=== PATIENT | female | born 1960 | race Caucasian/White ===

== ENCOUNTER 2018-05-23 10:50 | Emergency (ER) | payer SELFPAY ==
[2018-05-23] MEDS ORDERED: IBUPROFEN 400 MG TAB ONE (11:35)
[2018-05-23] MEDS ORDERED: IBUPROFEN 200 MG TAB PO ONE (11:35)
--- NOTE | 2018-05-23 12:29 | RAD REPORT ---
EXAM DESCRIPTION: RAD - Wrist Left 3 View - 05/23/2018 12:01 pm CLINICAL HISTORY: Trip and fall, left wrist pain COMPARISON: No remote imaging FINDINGS: Comminuted transverse fracture of the distal radius is present. Multiple small fracture fr agments are present along the dorsal margin. No distraction or angulation deformity. Fracture does no t appear to involve the articular surface. Ulna styloid is intact. No acute carpal bone finding. Ther e is no dislocation or periosteal reaction noted. No foreign body or other soft tissue abnormality. IMPRESSION: Comminuted distal left radius fracture without distraction, impaction or angulation defo rmity.
--- NOTE | 2018-05-23 12:31 | RAD REPORT ---
EXAM DESCRIPTION: RAD - Wrist Right 3 View - 05/23/2018 12:01 pm CLINICAL HISTORY: Trip and fall, numbness and tingling COMPARISON: None. FINDINGS: Transverse comminuted fracture the distal right radius is present. Ulna styloid is fractur ed. There is impaction along the dorsal margin and 25 degrees dorsal angulation deformity. There is n o dislocation or periosteal reaction noted. No foreign body or other soft tissue abnormality. IMPRESSION: Comminuted fracture of the distal right radius with dorsal impaction and 25 degree dorsa l angulation deformity. Fractured ulna styloid.
--- NOTE | 2018-05-23 12:54 | RAD REPORT ---
EXAM DESCRIPTION: RAD - Hand Left 3 View - 05/23/2018 12:00 pm CLINICAL HISTORY: Trip and fall COMPARISON: None. FINDINGS: Multiple views the left hand were obtained. Due to patient has significant pain, optimal p ositioning could not be obtained. Findings at the wrist are separately detailed. No fracture, dislocation or periosteal reaction of the left hand. No acute bone or joint finding. No air or foreign body. IMPRESSION: Negative left hand examination for fracture or acute finding. Left wrist findings are se parately detailed.
--- NOTE | 2018-05-23 12:55 | RAD REPORT ---
EXAM DESCRIPTION: RAD - Hand Right 3 View - 05/23/2018 12:00 pm CLINICAL HISTORY: Trip and fall COMPARISON: None. FINDINGS: Multiple views of the right hand were obtained. Due to severe patient pain, optimal positi oning could not be obtained. Wrist findings are separately detailed. No fracture, dislocation or periosteal reaction. No acute bone or joint finding identified. Degenerat tati changes are minimal. No foreign body or other soft tissue abnormality. IMPRESSION: Negative right hand examination for acute finding. Wrist findings are separately detaile j carlos
--- NOTE | 2018-05-23 13:42 | ER ---
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 Care prior to arrival: None. 10:56 Acuity: LUCY 4 sv 10:56 Method Of Arrival: Wheelchair sv 10:57 Transition of care: patient was not received from another setting of care. Onset of sv symptoms was May 23, 2018. 11:00 Risk Assessment: Do you want to hurt yourself or someone else? Patient reports no jl7 desire to harm self or others. Initial Sepsis Screen: Does the patient meet any 2 criteria? No. Patient's initial sepsis screen is negative. Does the patient have a suspected source of infection? No. Patient's initial sepsis screen is negative. Triage Assessment: 10:56 General: Appears uncomfortable, Behavior is cooperative, crying. Pain: Complains of sv pain in left and right wrist Pain currently is 8 out of 10 on a pain scale. Neuro: Level of Consciousness is awake, alert, obeys commands, Oriented to person, place, time, situation, Gait is steady. Respiratory: Respiratory effort is even, unlabored, Respiratory pattern is regular, symmetrical. Musculoskeletal: Range of motion: limited in left wrist and right wrist Swelling present in left and right wrist. Historical: - Allergies: 10:58 No Known Allergies; sv - Immunization history:: Adult Immunizations unknown. - Social history:: Patient/guardian denies using alcohol, street drugs, The patient lives with family, Smoking status: Patient uses tobacco products. - Family history:: not pertinent. - Ebola Screening: : No symptoms or risks identified at this time. Screenin:14 Abuse screen: Denies threats or abuse. Denies injuries from another. Nutritional jl7 screening: No deficits noted. Tuberculosis screening: No symptoms or risk factors identified. Fall Risk Fall in past 12 months (25 points). Total Lopez Fall Scale indicates No Risk (0-24 pts). Assessment: 11:14 General: Appears in no apparent distress. uncomfortable, Behavior is calm, cooperative, jl7 appropriate for age, crying. Pain: Complains of pain in right wrist and left wrist Pain currently is 10 out of 10 on a pain scale. Pain began 30 min ago. Is continuous. Neuro: Level of Consciousness is awake, alert, obeys commands, Oriented to person, place, time, situation. Cardiovascular: Patient's skin is warm and dry. Pulses are palpable in right radial artery and left radial artery. Respiratory: Airway is patent Respiratory effort is even, unlabored, Respiratory pattern is regular, symmetrical. Derm: Skin is pink, warm \T\ dry. Musculoskeletal: Range of motion: intact in left wrist and right wrist Bony deformity noted of right wrist and left wrist. 12:15 Reassessment: Patient appears in no apparent distress at this time. Patient and/or jl7 family updated on plan of care and expected duration. Pain level reassessed. Patient is alert, oriented x 3, equal unlabored respirations, skin warm/dry/pink. 13:45 Reassessment: Patient appears in no apparent distress at this time. Patient and/or jl7 family updated on plan of care and expected duration. Pain level reassessed. Patient is alert, oriented x 3, equal unlabored respirations, skin warm/dry/pink. Patient states symptoms have improved. Vital Signs: 10:57 BP 110 / 70; Pulse 84; Resp 18; Temp 97; Pulse Ox 96% ; Weight 58.97 kg; Height 5 ft. 2 sv in. (157.48 cm); Pain 8/10; 13:45 BP 111 / 71; Pulse 83; Resp 16 S; Pulse Ox 97% on R/A; Pain 4/10; jl7 10:57 Body Mass Index 23.78 (58.97 kg, 157.48 cm) sv ED Course: 10:53 Patient arrived in ED. mr 10:57 Triage completed. sv 10:58 Arm band placed on. sv 11:01 Fred Vergara MD is Attending Physician. ma2 11:03 Ice pack to injury. sv 11:14 Darby Levine RN is Primary Nurse. jl7 11:14 Patient has correct armband on for positive identification. Bed in low position. Call jl7 light in reach. Side rails up X 1. 12:02 XRAY Hand RIGHT 3 View In Process Unspecified. EDMS 12:02 XRAY Hand LEFT 3 View In Process Unspecified. EDMS 12:03 Wrist Left (3 View) XRAY In Process Unspecified. EDMS 12:03 Wrist Right 3 View XRAY In Process Unspecified. EDMS 13:41 Orthoglass splint: Sugar tong splint applied on bilateral arms. 5 13:42 Assist provider with reduction of right using manipulation, Performed by Fred Vergara MD Patient tolerated well. 14:07 Patient did not have IV access during this emergency room visit. jl7 Administered Medications: 11:28 Drug: Motrin 600 mg Route: PO; jl7 12:25 Follow up: Response: No adverse reaction; Pain is decreased jl7 Outcome: 13:41 Discharge ordered by . peterson 14:07 Discharged to home ambulatory, with family. jl7 14:07 Condition: stable 14:07 Discharge instructions given to patient, family, Instructed on discharge instructions, follow up and referral plans. medication usage, Demonstrated understanding of instructions, follow-up care, medications, Prescriptions given X 1. 14:08 Patient left the ED. jl7 Signatures: Dispatcher [employer] Berna Zamudio RN RN sv Rivera, Jasmine Billie Kang Darby Siddiqi RN RN jl7 Alzahri, Mohammad, MD MD [facility]
--- NOTE | 2018-05-23 13:42 | EDPHYS ---
Physician Documentation [facility] Name: Paresh Simeon Age: 57 yrs Sex: Female : 1960 Arrival Date: 05/23/2018 Time: 10:53 Bed 14 Private MD: ED Physician Fred Vergara HPI: 05/23 11:35 This 57 yrs old Female presents to ER via Wheelchair with complaints of Fall ma2 Injury, Wrist Injury. 11:35 Details of fall: The patient fell from a supine position. Associated injuries: The ma2 patient sustained both hands . Severity of symptoms: At their worst the symptoms were moderate, in the emergency department the symptoms are unchanged. The patient has not experienced similar symptoms in the past. Historical: - Allergies: 10:58 No Known Allergies; sv - Immunization history:: Adult Immunizations unknown. - Social history:: Patient/guardian denies using alcohol, street drugs, The patient lives with family, Smoking status: Patient uses tobacco products. - Family history:: not pertinent. - Ebola Screening: : No symptoms or risks identified at this time. ROS: 11:35 Constitutional: Negative for fever, chills, and weight loss, Eyes: Negative for injury, ma2 pain, redness, and discharge, Abdomen/GI: Negative for abdominal pain, nausea, diarrhea, and constipation. 11:35 MS/extremity: Positive for pain, Negative for bite, decreased range of motion, rash, tingling. Exam: 11:35 Constitutional: This is a well developed, well nourished patient who is awake, alert, ma2 and in no acute distress. Chest/axilla: Normal chest wall appearance and motion. Nontender with no deformity. No lesions are appreciated. Cardiovascular: Regular rate and rhythm with a normal S1 and S2. No gallops, murmurs, or rubs. Normal PMI, no JVD. No pulse deficits. Respiratory: Lungs have equal breath sounds bilaterally, clear to auscultation and percussion. No rales, rhonchi or wheezes noted. No increased work of breathing, no retractions or nasal flaring. Abdomen/GI: Soft, non-tender, with normal bowel sounds. No distension or tympany. No guarding or rebound. No evidence of tenderness throughout. Neuro: Awake and alert, GCS 15, oriented to person, place, time, and situation. Cranial nerves II-XII grossly intact. Motor strength 5/5 in all extremities. Sensory grossly intact. Cerebellar exam normal. Normal gait. 11:35 Musculoskeletal/extremity: ROM: intact in all extremities, limited active range of motion, both hands , Circulation is intact in all extremities. Sensation intact. Vital Signs: 10:57 BP 110 / 70; Pulse 84; Resp 18; Temp 97; Pulse Ox 96% ; Weight 58.97 kg; Height 5 ft. 2 sv in. (157.48 cm); Pain 8/10; 13:45 BP 111 / 71; Pulse 83; Resp 16 S; Pulse Ox 97% on R/A; Pain 4/10; jl7 10:57 Body Mass Index 23.78 (58.97 kg, 157.48 cm) sv Procedures: 13:40 Reduction: of the right wrist, using traction, Immobilized with wrist splint, Patient peterson tolerated well. MDM: 11:01 Patient medically screened. [facility] 11:35 Differential diagnosis: contusion, fracture, sprain, strain. [facility] 13:40 Data reviewed: vital signs, nurses notes. Counseling: I had a detailed discussion with [facility] the patient and/or guardian regarding: the historical points, exam findings, and any diagnostic results supporting the discharge/admit diagnosis, the presence of at least one elevated blood pressure reading (>120/80) during this emergency department visit, the need for outpatient follow up. 13:41 Patient medically screened. [facility] 05/23 11:13 Order name: XRAY Hand RIGHT 3 View; Complete Time: 13:40 [facility] 05/23 11:13 Order name: XRAY Hand LEFT 3 View; Complete Time: 13:40 [facility] 05/23 11:37 Order name: Wrist Left (3 View) XRAY; Complete Time: 12:38 [facility] 05/23 11:37 Order name: Wrist Right 3 View XRAY; Complete Time: 12:38 [facility] 05/23 12:44 Order name: Sugar Tong Forearm Splint: bilateral; Complete Time: 13:42 [facility] 05/23 12:44 Order name: Sugar Tong Forearm Splint: bilateral; Complete Time: 13:42 [facility] Administered Medications: 11:28 Drug: Motrin 600 mg Route: PO; jl7 12:25 Follow up: Response: No adverse reaction; Pain is decreased jl7 Disposition: 05/23/18 13:41 Discharged to Home. Impression: Colles' fracture of left radius, Colles' fracture of right radius. - Condition is Stable. - Discharge Instructions: Colles Fracture. - Prescriptions for Tylenol- Codeine #3 300-30 mg Oral Tablet - take 2 tablet by ORAL route every 6 hours As needed; 30 tablet. - Medication Reconciliation Form, Thank You Letter, Antibiotic Education, Prescription Opioid Use form. - Follow up: Private Physician; When: Tomorrow; Reason: Continuance of care. Signatures: Dispatcher [employer] Berna Zamudio, RN RN Darby Leiva RN RN jl7 Fred Vergara MD MD ma2 Corrections: (The following items were deleted from the chart) 14:08 13:41 05/23/2018 13:41 Discharged to Home. Impression: Colles' fracture of left radius; jl7 Colles' fracture of right radius. Condition is Stable. Forms are Medication Reconciliation Form, Thank You Letter, Antibiotic Education, Prescription Opioid Use. Follow up: Private Physician; When: Tomorrow; Reason: Continuance of care. ma2
== END 2018-05-23 14:08 | disposition home or self-care (01) ==
LOC: ER 10:50
DX: S52.532A Colles' fracture of left radius, initial encounter for closed fracture (principal); Z72.0 Tobacco use
CPT/HCPCS: 99284